=== PATIENT | female | born 1975 | race Caucasian/White ===

== ENCOUNTER → 2021-07-12 | Outpatient (CLI) | payer BC ==
--- NOTE | 2021-07-12 16:43 | KCIC ---
Bilateral digital screening mammograms: Reason for examination: Routine screening. Comparison is made to previous studies dated 11/15/2012 and 02/24/2011. Interpretation was made with the benefit of CAD. The skin and nipples show no abnormalities. No abnormal axillary lymph nodes are seen. The breast par enchyma is heterogeneously dense. (Breast density: Category C.) There is a small nodular density in t he 2:00 position of the left breast measuring approximately 6 mm in greatest dimension and located ap proximately 10 cm from the nipple. There is also some nodularity in the subareolar 5:00 position of t he left breast anteriorly approximately 3 cm posterior to the nipple and measuring 1.8 cm in greatest dimension. Further evaluation with coned compression views and ultrasound of the left breast is josh mmended. There are no other new dominant masses, suspicious calcifications or architectural distortio n. Impression: 6 mm nodular density at the 2:00 position of the left breast 10 cm from the nipple. 1.8 cm area of nodularity at the subareolar 5:00 position 3 cm from the nipple in the left breast. Recommend further evaluation with coned compression views and ultrasound examinations of the left andrade ast. Your patient's mammogram demonstrates that she has dense breast tissue (breast density category C or D), which could hide abnormalities, and if she has other risk factors for breast cancer that have bee n identified, she might benefit from supplemental screening tests that may be suggested by you as her ordering physician. Dense breast tissue, in and of itself, is a relatively common condition. Therefo re, this information is not provided to cause undue concern, but rather to raise your awareness and t o promote discussion with your patient regarding the presence of other risk factors, in addition to d ense breast tissue. Your patient's mammography results will be sent to her. BI-RAD Category 0: Incomplete. Needs additional imaging evaluation. "Our facility is accredited by the [employer] Mammography Program." This patient's information has been entered into a reminder system for the patient to be notified wit h the results of her examination and a target date for the next mammogram. Electronically signed by: Priti Dias MD (07/12/2021 4:41 PM) [id number]
== END ==
LOC: KCIC MAMMO 10:18
PROVIDERS: ATTEND Family Medicine
DX: Z12.31 Encounter for screening mammogram for malignant neoplasm of breast (principal)
CPT/HCPCS: 77067

== ENCOUNTER → 2021-07-27 | Outpatient (CLI) | payer BC ==
--- NOTE | 2021-07-27 13:51 | KCIC ---
Left diagnostic mammogram (2-D) and targeted left breast ultrasound: Reason for examination: Abnormal mammogram with small nodular density in the 2:00 position of the lef t breast. Nodularity of the retroareolar region/5:00 position. Comparison: Mammograms from 07/12/2021 and 16/06/2012. Interpretation was made with the benefit of CAD. FINDINGS MAMMOGRAM: Breast density: Category C. There is heterogeneously dense fibroglandular tissue, which may obscure s mall masses. There is a 5 mm oval circumscribed mass in the outer left breast approximately 7 to 8 cm from the nip ple. No discrete mass is identified in the area of interest in the left retroareolar/5:00 position. T here is dense fibroglandular tissue here. Findings targeted left breast ultrasound: The outer left breast was imaged in the area of interest on mammogram. At 3:00, 7 cm from the nipple, there is a 5.5 mm oval hypoechoic circumscribed mass. This correlates with the small mass seen on mammogram, and shows no internal blood flow or posterior acou stic shadowing. In the 4:00 position, 4 cm from the nipple, there is a 9 mm cyst. This appears to be contiguous with a duct. No left axillary adenopathy is seen. IMPRESSION: There is a probably benign 5.5 mm mass in the 3:00 position of the left breast, 7 cm from the nipple. This is likely due to a fibroadenoma. A cyst is seen in the 4:00 region, 4 cm from the nipple. Assessment: BI-RADS 3. Probably benign findings. Recommendation: Follow-up targeted left breast ultrasound in 6 months. Results are given to the patient at time of examination. Your patient's mammogram demonstrates that she has dense breast tissue (breast density category C or D), which could hide abnormalities, and if she has other risk factors for breast cancer that have bee n identified, she might benefit from supplemental screening tests that may be suggested by you as her ordering physician. Dense breast tissue, in and of itself, is a relatively common condition. Therefo re, this information is not provided to cause undue concern, but rather to raise your awareness and t o promote discussion with your patient regarding the presence of other risk factors, in addition to d ense breast tissue. This patient's information has been entered into a reminder system for the patient to be notified wit h the results of her examination by mail and a target date for the next mammogram. A reminder letter will be generated. Electronically signed by: Margo Priest MD (07/27/2021 1:49 PM) [email or web address]
== END ==
LOC: KCIC MAMMO 09:57
PROVIDERS: ATTEND Family Medicine
DX: N63.23 Unspecified lump in the left breast, lower outer quadrant (principal); N60.02 Solitary cyst of left breast
CPT/HCPCS: 76641; 77065